=== PATIENT | female | born 1945 | race Caucasian/White ===

== ENCOUNTER → 2023-12-01 11:43 | Outpatient (REF) | payer MEDICARE, BC, SELFPAY ==
[2023-12-01 12:17] LABS: % Basophils 0.9 % (0-2); % Eosinophils 1.5 % (0-6); % Immature Granulocytes 0.2 % (0-0.5); % Lymphocytes 30.5 % (20.5-51.1); % Neutrophils 53.9 % (42.2-75.2); Absolute Eosinophils 0.1 10^3/uL (0-0.7); Absolute Lymphocytes 1.4 10^3/uL (1.2-3.4); Absolute Monocytes 0.6 10^3/uL (0.1-0.6); Absolute Neutrophils 2.5 10^3/uL (1.4-6.5); Hematocrit 38.2 % (37.0-47.0); Hemoglobin 12.4 g/dL (12.0-16.0); Mean Corp Hgb Conc. 32.5 g/dL (33.0-37.0); Mean Corpuscular Hgb 30.4 pg (27.0-31.0); Mean Corpuscular Volume 93.6 fL (81.0-99.0); Nucleated Red Blood Cells % 0 %; Platelet Count 247 10^3/uL (130-400); Red Blood Cell Count 4.08 10^6/uL (4.20-5.40); Red Cell Dist. Width 15.5 % (11.5-14.5); White Blood Cell Count 4.6 10^3/uL (4.8-10.8)
[2023-12-01 12:28] LABS: INR 1.03; PT 13.3 Sec (11.4-14.6)
[2023-12-01 12:41] LABS: ALT (SGPT) 21 U/L (0-35); AST (SGOT) 35 U/L (14-36); Albumin 4.4 g/dl (3.5-5.0); Alkaline Phosphatase 480 U/L (38-126); Blood Urea Nitrogen 19 mg/dl (7-17); Calcium 10.1 mg/dl (8.4-10.2); Carbon Dioxide 26 mmol/L (22-30); Chloride 107 mmol/L (98-107); GGTP 672 U/L (12-43); Glucose 92 mg/dl (70-99); Sodium 139 mmol/L (135-145); Total Bilirubin 0.9 mg/dl (0.2-1.3); Total Protein 8.5 g/dl (6.3-8.2); eGFR > 60.00
[2023-12-01 13:16] LABS: AFP Male/Tumor Marker 5.86 ng/ml
[2023-12-02 21:25] LABS: ANA, IgG Reflex to HEp-2 None Detected (None Detected)
[2023-12-02 22:08] LABS: Mitochondrial M2 Ab, IgG 135.8 Units (0.0-24.9)
[2023-12-03 02:58] LABS: F-Actin Antibody IgG 11 Units (0-19)
[2023-12-04 04:05] LABS: IgA 747 mg/dl (70-400); IgG 1353 mg/dl (700-1600)
[2023-12-04 04:19] LABS: IgM 641 mg/dl (40-230)
== END ==
LOC: REG 11:43
PROVIDERS: ATTENDING PHYSICIAN Internal Medicine Transplant Hepatology; FAMILY PHYSICIAN Internal Medicine
DX: K74.69 Other cirrhosis of liver (principal); K74.3 Primary biliary cirrhosis
CPT/HCPCS: 36415; 80053; 82105; 82784; 82977; 85025; 85610; 86015; 86038; 86381

== ENCOUNTER 2023-12-05 06:43 | Day surgery (SDC) | payer MEDICARE, BC, SELFPAY ==
[2023-12-05 10:51] VITALS: BMI 19.9
[2023-12-05 10:52] VITALS: BMI 19.9
[2023-12-05 10:56] VITALS: BP 134/72
[2023-12-05 13:18] VITALS: BP 113/77
[2023-12-05 13:33] VITALS: BP 142/81
[2023-12-05 13:48] VITALS: BP 141/83
== END 2023-12-05 13:53 | disposition home or self-care (01) ==
LOC: GI 06:43
PROVIDERS: ATTENDING PHYSICIAN Internal Medicine Gastroenterology
DX: K86.9 Disease of pancreas, unspecified (principal); K80.50 Calculus of bile duct without cholangitis or cholecystitis without obstruction; R93.5 Abnormal findings on diagnostic imaging of other abdominal regions, including retroperitoneum
CPT/HCPCS: 43237

== ENCOUNTER → 2024-01-02 12:24 | Outpatient (REF) | payer MEDICARE, BC, SELFPAY ==
[2024-01-02 14:14] LABS: CEA 1.55 ng/ml
== END ==
LOC: REG 12:24
PROVIDERS: ATTENDING PHYSICIAN Surgery; FAMILY PHYSICIAN Internal Medicine
DX: C20 Malignant neoplasm of rectum (principal)
CPT/HCPCS: 36415; 82378

== ENCOUNTER → 2024-02-21 06:27 | Day surgery (SDC) | payer MEDICARE, BC, SELFPAY | LOC: GI 06:27 | PROVIDERS: ATTENDING PHYSICIAN Surgery | DX: K63.5 Polyp of colon (principal); K57.30 Diverticulosis of large intestine without perforation or abscess without bleeding; K62.6 Ulcer of anus and rectum; K64.8 Other hemorrhoids; Z85.048 Personal history of other malignant neoplasm of rectum, rectosigmoid junction, and anus | CPT/HCPCS: 45331; 88305 ==

== ENCOUNTER → 2024-02-23 12:59 | Outpatient (REF) | payer MEDICARE, BC, SELFPAY | LOC: WDC 12:59 | PROVIDERS: ATTENDING PHYSICIAN Internal Medicine | DX: Z12.31 Encounter for screening mammogram for malignant neoplasm of breast (principal) | CPT/HCPCS: 77063; 77067 ==

== ENCOUNTER → 2024-02-27 11:11 | Outpatient (REF) | payer MEDICARE, BC, SELFPAY ==
[2024-02-27 12:10] LABS: % Basophils 0.8 % (0-2); % Eosinophils 1.6 % (0-6); % Immature Granulocytes 0.3 % (0-0.5); % Lymphocytes 30.6 % (20.5-51.1); % Monocytes 14.5 % (1.7-9.3); % Neutrophils 52.2 % (42.2-75.2); Absolute Eosinophils 0.1 10^3/uL (0-0.7); Absolute Lymphocytes 1.1 10^3/uL (1.2-3.4); Absolute Monocytes 0.5 10^3/uL (0.1-0.6); Hematocrit 34.8 % (37.0-47.0); Hemoglobin 11.9 g/dL (12.0-16.0); Mean Corp Hgb Conc. 34.2 g/dL (33.0-37.0); Mean Corpuscular Hgb 31.1 pg (27.0-31.0); Mean Corpuscular Volume 90.9 fL (81.0-99.0); Mean Platelet Volume 9.8 fL (7.4-10.4); Nucleated Red Blood Cells % 0 %; Platelet Count 234 10^3/uL (130-400); Red Blood Cell Count 3.83 10^6/uL (4.20-5.40); Red Cell Dist. Width 15.2 % (11.5-14.5); White Blood Cell Count 3.7 10^3/uL (4.8-10.8)
[2024-02-27 12:23] LABS: INR 1.08; PT 13.8 Sec (11.4-14.6)
[2024-02-27 12:38] LABS: ALT (SGPT) 19 U/L (0-35); AST (SGOT) 32 U/L (14-36); Albumin 4.5 g/dl (3.5-5.0); Alkaline Phosphatase 565 U/L (38-126); Blood Urea Nitrogen 17 mg/dl (7-17); Calcium 9.8 mg/dl (8.4-10.2); Carbon Dioxide 26 mmol/L (22-30); Chloride 107 mmol/L (98-107); GGTP 779 U/L (12-43); Glucose 96 mg/dl (70-99); Potassium 4.4 mmol/L (3.5-5.1); Sodium 142 mmol/L (135-145); Total Bilirubin 0.9 mg/dl (0.2-1.3); Total Protein 8.1 g/dl (6.3-8.2); eGFR > 60.00
[2024-02-27 13:08] LABS: AFP Male/Tumor Marker 5.97 ng/ml
[2024-02-29 20:42] LABS: Alpha-Tocopherol 14.4 mg/L (5.5-18.0); Gamma-Tocopherol 0.6 mg/L (0.0-6.0); Retinyl Palmitate <0.02 mg/L (0.00-0.10); Xitamin A Interpretation Normal
== END ==
LOC: REG 11:11
PROVIDERS: ATTENDING PHYSICIAN Internal Medicine Transplant Hepatology; FAMILY PHYSICIAN Internal Medicine; REFERRING PHYSICIAN Surgery
DX: K74.3 Primary biliary cirrhosis (principal); R93.2 Abnormal findings on diagnostic imaging of liver and biliary tract
CPT/HCPCS: 36415; 80053; 82105; 82306; 82977; 84446; 84590; 85025; 85610

== ENCOUNTER → 2024-03-04 09:14 | Outpatient (REF) | payer MEDICARE, BC, SELFPAY | LOC: RAD 09:14 | PROVIDERS: ATTENDING PHYSICIAN Internal Medicine Transplant Hepatology; FAMILY PHYSICIAN Internal Medicine | DX: K74.3 Primary biliary cirrhosis (principal) | CPT/HCPCS: 76700 ==

== ENCOUNTER → 2024-04-26 12:45 | Outpatient (REF) | payer MEDICARE, BC, SELFPAY | LOC: REG 12:45 | PROVIDERS: ATTENDING PHYSICIAN Internal Medicine | DX: M25.512 Pain in left shoulder (principal); M54.2 Cervicalgia | CPT/HCPCS: 72040; 73030 ==

== ENCOUNTER → 2024-07-09 10:49 | Outpatient (REF) | payer MEDICARE, BC, SELFPAY ==
[2024-07-09 11:18] LABS: % Basophils 0.5 % (0-2); % Eosinophils 1.3 % (0-6); % Immature Granulocytes 0.3 % (0-0.5); % Lymphocytes 21.4 % (20.5-51.1); % Monocytes 9.9 % (1.7-9.3); % Neutrophils 66.6 % (42.2-75.2); Absolute Eosinophils 0.1 10^3/uL (0-0.7); Absolute Lymphocytes 1.4 10^3/uL (1.2-3.4); Absolute Monocytes 0.6 10^3/uL (0.1-0.6); Absolute Neutrophils 4.2 10^3/uL (1.4-6.5); Hematocrit 35.7 % (37.0-47.0); Hemoglobin 11.9 g/dL (12.0-16.0); Mean Corp Hgb Conc. 33.3 g/dL (33.0-37.0); Mean Corpuscular Hgb 29.5 pg (27.0-31.0); Mean Corpuscular Volume 88.6 fL (81.0-99.0); Mean Platelet Volume 9.9 fL (7.4-10.4); Nucleated Red Blood Cells % 0 %; Platelet Count 248 10^3/uL (130-400); Red Blood Cell Count 4.03 10^6/uL (4.20-5.40); Red Cell Dist. Width 14.6 % (11.5-14.5); White Blood Cell Count 6.4 10^3/uL (4.8-10.8)
[2024-07-09 11:39] LABS: INR 0.96
[2024-07-09 12:19] LABS: ALT (SGPT) 18 U/L (0-35); AST (SGOT) 32 U/L (14-36); Albumin 4.5 g/dl (3.5-5.0); Alkaline Phosphatase 643 U/L (38-126); Blood Urea Nitrogen 20 mg/dl (7-17); Calcium 9.9 mg/dl (8.4-10.2); Carbon Dioxide 23 mmol/L (22-30); Chloride 108 mmol/L (98-107); GGTP 442 U/L (12-43); Glucose 97 mg/dl (70-99); Potassium 4.4 mmol/L (3.5-5.1); Sodium 145 mmol/L (135-145); Total Protein 8.4 g/dl (6.3-8.2); eGFR 56.95
== END ==
LOC: REG 10:49
PROVIDERS: ATTENDING PHYSICIAN Internal Medicine Transplant Hepatology
DX: R55 Syncope and collapse (principal); K74.3 Primary biliary cirrhosis
CPT/HCPCS: 36415; 80053; 82977; 85025; 85610

== ENCOUNTER → 2024-09-11 10:39 | Outpatient (REF) | payer MEDICARE, BC, SELFPAY | LOC: MRI 3T 10:39 | PROVIDERS: ATTENDING PHYSICIAN Internal Medicine Transplant Hepatology; FAMILY PHYSICIAN Internal Medicine | DX: K74.3 Primary biliary cirrhosis (principal); K74.69 Other cirrhosis of liver | CPT/HCPCS: 74183; A9581 ==

== ENCOUNTER → 2025-01-29 11:57 | Outpatient (REF) | payer MEDICARE, BC, SELFPAY ==
[2025-01-29 12:38] LABS: % Basophils 0.4 % (0-2); % Eosinophils 1.1 % (0-6); % Immature Granulocytes 0.4 % (0-0.5); % Lymphocytes 29.8 % (20.5-51.1); % Neutrophils 56.3 % (42.2-75.2); Absolute Eosinophils 0.1 10^3/uL (0-0.7); Absolute Lymphocytes 1.4 10^3/uL (1.2-3.4); Absolute Monocytes 0.6 10^3/uL (0.1-0.6); Absolute Neutrophils 2.6 10^3/uL (1.4-6.5); Hematocrit 34.1 % (37.0-47.0); Hemoglobin 11.2 g/dL (12.0-16.0); Mean Corp Hgb Conc. 32.8 g/dL (33.0-37.0); Mean Corpuscular Hgb 27.7 pg (27.0-31.0); Mean Corpuscular Volume 84.2 fL (81.0-99.0); Mean Platelet Volume 9.8 fL (7.4-10.4); Nucleated Red Blood Cells % 0 %; Platelet Count 208 10^3/uL (130-400); Red Blood Cell Count 4.05 10^6/uL (4.20-5.40); Red Cell Dist. Width 15.7 % (11.5-14.5); White Blood Cell Count 4.7 10^3/uL (4.8-10.8)
[2025-01-29 12:49] LABS: INR 0.93
[2025-01-29 13:34] LABS: ALT (SGPT) 14 U/L (0-35); AST (SGOT) 24 U/L (14-36); Albumin 4.4 g/dl (3.5-5.0); Alkaline Phosphatase 457 U/L (38-126); Blood Urea Nitrogen 23 mg/dl (7-17); Calcium 9.7 mg/dl (8.4-10.2); Carbon Dioxide 24 mmol/L (22-30); Chloride 112 mmol/L (98-107); GGTP 337 U/L (12-43); Glucose 89 mg/dl (70-99); Potassium 4.3 mmol/L (3.5-5.1); Sodium 145 mmol/L (135-145); Total Bilirubin 0.9 mg/dl (0.2-1.3); Total Protein 8.7 g/dl (6.3-8.2)
[2025-01-29 13:49] LABS: Vitamin D, 25-OH*** 66.4 ng/mL (30-80)
[2025-01-29 14:04] LABS: CEA 2.16 ng/ml
[2025-01-31 20:03] LABS: AFP Male/Tumor Marker 6.48 ng/ml
== END ==
LOC: REG 11:57
PROVIDERS: ATTENDING PHYSICIAN Surgery; FAMILY PHYSICIAN Internal Medicine; OTHER PHYSICIAN Internal Medicine Transplant Hepatology
DX: C20 Malignant neoplasm of rectum (principal); K74.3 Primary biliary cirrhosis; K74.69 Other cirrhosis of liver
CPT/HCPCS: 36415; 80053; 82105; 82306; 82378; 82977; 84446; 84590; 85025; 85610

== ENCOUNTER 2025-02-12 06:05 | Day surgery (SDC) | payer MEDICARE, BC, SELFPAY ==
[2025-02-12 12:32] VITALS: BMI 21.1
[2025-02-12 12:33] VITALS: BP 130/77
[2025-02-12 13:47] VITALS: BP 102/69
[2025-02-12 14:00] VITALS: BP 134/79
[2025-02-12 14:15] VITALS: BP 154/85
== END 2025-02-12 14:30 | disposition home or self-care (01) ==
LOC: SDS 06:05
PROVIDERS: ATTENDING PHYSICIAN Surgery
DX: Z12.11 Encounter for screening for malignant neoplasm of colon (principal); K57.30 Diverticulosis of large intestine without perforation or abscess without bleeding; K64.9 Unspecified hemorrhoids; Z85.048 Personal history of other malignant neoplasm of rectum, rectosigmoid junction, and anus
CPT/HCPCS: 45330

== ENCOUNTER → 2025-06-18 14:28 | Outpatient (REF) | payer MEDICARE, BC, SELFPAY | LOC: RAD 14:28 | PROVIDERS: ATTENDING PHYSICIAN Internal Medicine; FAMILY PHYSICIAN Internal Medicine | DX: K74.3 Primary biliary cirrhosis (principal) | CPT/HCPCS: 76700 ==

== ENCOUNTER 2025-08-11 13:57 | Emergency (ER) | payer MEDICARE, BC, SELFPAY ==
[2025-08-11 14:18] VITALS: BP 127/74
[2025-08-11 14:44] LABS: Hematocrit 32.5 % (37.0-47.0); Hemoglobin 10.9 g/dL (12.0-16.0); Mean Corp Hgb Conc. 33.5 g/dL (33.0-37.0); Mean Corpuscular Volume 84.0 fL (81.0-99.0); Nucleated Red Blood Cells % 0 %; Platelet Count 268 10^3/uL (130-400); Red Cell Dist. Width 15.9 % (11.5-14.5)
[2025-08-11 15:03] LABS: ALT (SGPT) 14 U/L (0-35); AST (SGOT) 21 U/L (14-36); Albumin 4.0 g/dl (3.5-5.0); Alkaline Phosphatase 546 U/L (38-126); Blood Urea Nitrogen 20 mg/dl (7-17); Calcium 9.2 mg/dl (8.4-10.2); Carbon Dioxide 18 mmol/L (22-30); Chloride 111 mmol/L (98-107); Glucose 103 mg/dl (70-99); Potassium 3.9 mmol/L (3.5-5.1); Sodium 139 mmol/L (135-145); Total Protein 8.1 g/dl (6.3-8.2); eGFR 45.48
[2025-08-11 16:52] VITALS: BP 128/75
--- NOTE | 2025-08-11 18:07 | ED.GENMED ---
History of Present Illness
General
Chief Complaint: Rectal Bleeding
Source: patient
Exam Limitations: none
Time Seen by Provider: 08/11/25 17:43
History of Present Illness
History of Present Illness:
79-year-old female with history of hypertension presents with increasing swelling and pain with increasing bleeding from her hemorrhoids. She had a banding procedure done on July 29. She has not seen the surgeon in follow-up at this time. She
states since the weekend her symptoms have been worsening. She was concerned about a clot. She notes she is straining to have bowel movements still. No urinary symptoms or abdominal pain. No fever or vomiting. No other complaints
Phy Exam
Physical Exam
Physical Exam:
General: Well-appearing female in no acute respiratory distress
HEENT: Normal cephalic atraumatic heart: Regular rate and rhythm
Lungs: Clear no wheeze
Abdomen is soft nontender rectal exam: This was performed with female nurseMildred as a audiometric technician in the room
There is small hemorrhoids noted anteriorly and bilaterally largest of these measures 1.5 cm. They are soft but tender to the touch no evidence of thrombosis no palpable fluctuance to suggest abscess no current bleeding or drainage
Course
Orders/Labs/Results
Orders:
Orders
08/11/25 14:28
Complete Blood Count/With Diff Urgent
Comprehensive Metabolic Panel Urgent
Abnormal Lab Results
08/11/25
14:28
RBC 3.87 L 10^6/uL
(4.20-5.40)
Hgb 10.9 L g/dL
(12.0-16.0)
Hct 32.5 L %
(37.0-47.0)
RDW 15.9 H %
(11.5-14.5)
Monocytes % 9.8 H %
(1.7-9.3)
Chloride 111 H mmol/L
(98-107)
Carbon Dioxide 18 L mmol/L
(22-30)
BUN 20 H mg/dl
(7-17)
Creatinine 1.2 H mg/dL
(0.6-1.0)
Glucose 103 H mg/dl
(70-99)
Alkaline Phosphatase 546 H U/L
(38-126)
08/11/25 14:28
08/11/25 14:28
Vital Signs
Initial and Last Documented VS:
Initial Vital Signs
Temp Pulse Resp BP Pulse Ox
98.0 F 87 16 127/74 698
08/11/25 14:18 08/11/25 14:18 08/11/25 14:18 08/11/25 14:18 08/11/25 14:18
Last Documented Vital Signs
Temp Pulse Resp BP Pulse Ox
98.0 F 63 19 128/75 95
08/11/25 14:18 08/11/25 16:52 08/11/25 16:52 08/11/25 16:52 08/11/25 18:09
MDM/Problems Addressed
Differential Diagnosis Includes:
Patient with painful hemorrhoids following banding procedure done almost 2 weeks ago. Labs were ordered through triage which shows a stable hemoglobin white blood cell count is normal. Will reach out to colorectal for their input
*Pulse Oximetry
SaO2: 95
Oxygen Mode of Delivery: Room air
Patient hypoxic: no
*Critical Care Note
Total Time (30-74mins, 75-104mins- exclusive of procedures): Not Applicable
Update Note
Update Note:
Discussed with colorectal surgery who saw pictures of the patient's hemorrhoids. They recommended topical cream as well as refilling her Tylenol with codeine. No intervention to perform at this time. Stable for discharge
ED Attending Note
-
Portions of this chart may have been created with voice recognition software.� Occasional wrong word or��sound alike� substitutions may have occurred due to the inherent limitations of voice recognition software.
Discharge Plan
Departure
Patient Disposition: Home (Routine Discharge)
Date of Disposition: 08/11/25
Time of Disposition: 19:21
Patient with high blood pressure during this ER visit?: No
Discharge Problem:
Hemorrhoids
Instructions: Hemorrhoids (DC)
Prescriptions:
New
dibucaine 1 % ointment
1 applic topical QID PRN (Reason: pain) Qty: 28 0RF
acetaminophen-codeine 300-30 mg tablet
1 tab PO Q8H PRN (Reason: Pain) Qty: 14 0RF
No Action
amlodipine 10 MG tablet
10 mg PO DAILY
ursodiol 300 MG capsule
900 mg PO DAILY
losartan [Cozaar] 100 MG tablet
100 mg PO DAILY
aspirin 81 mg Tablet,Delayed Release (Dr/Ec)
81 mg PO Q48H
calcium carbonate-vitamin D3 [Caltrate with Vitamin D3] 600 mg-20 mcg (800 unit) Tablet
1 tab PO BID
Bariatric Multivitamins 45 mg iron- 800 mcg-120 mcg Capsule
1 cap PO DAILY
omeprazole 20 mg Capsule,Delayed Release(Dr/Ec)
20 mg PO DAILY
psyllium husk [Metamucil] 0.4 gram Capsule
0.4 g PO DAILY
Referrals:
Lavern Vela MD [Family Provider, Internal Medicine]
Activity Restrictions/Additional Instructions:
Use topical cream as directed take Tylenol with codeine as directed. Follow-up with Dr. Suarez peer return here if worse
Interventions
Interventions:
*General Assessment Last Done: 08/11/25 14:18
*Neglect/Abuse Screening Last Done: 08/11/25 14:18
*ED COVID-19 Vaccine History Last Done: 08/11/25 14:18
*ED Influenza Vaccine History Last Done: 08/11/25 14:18
[facility] Risk Assessment Tool Last Done: 08/11/25 18:02
*Risk Screen - Suicide (C-SSRS) Last Done: 08/11/25 14:18
CK-Imvzix-Ippjmpqdrc Assessment Last Done: 08/11/25 18:02
ED- Cardiac Assessment Last Done: 08/11/25 18:02
ED- Pulmonary Assessment Last Done: 08/11/25 18:02
Discharge Date and Time
Print Language: MALTESE
[2025-08-11 19:47] VITALS: BP 131/102
== END 2025-08-11 19:47 | disposition home or self-care (01) ==
LOC: EMR 13:57
PROVIDERS: Emergency Medicine; EMERGENCY PHYSICIAN Emergency Medicine; FAMILY PHYSICIAN Internal Medicine
DX: K64.9 Unspecified hemorrhoids (principal); I10 Essential (primary) hypertension
CPT/HCPCS: 99283; 80053; 85025